=== PATIENT | male | born 1995 | race Caucasian/White ===

== ENCOUNTER 2017-10-20 14:25 | Emergency (ER) | payer OTHER ==
[~2017-10-20] VITALS: Ht 177.8 cm; Wt 68.0 kg
[2017-10-20 14:55] VITALS: BP 118/70
[2017-10-20] MEDS ORDERED: TDAP [DIPH/PERTUSSIS/TET] 0.5 ML VIAL IM ONE ×2 (15:02→15:30)
--- NOTE | 2017-10-20 15:11 | NUR ---
PT'S MIDDLE FINGER IS SOAKING IN BETADINE AND SALINE.
== END 2017-10-20 15:29 | disposition home or self-care (01) ==
LOC: ER 14:28
DX: S61.253A Open bite of left middle finger without damage to nail, initial encounter (principal); F10.10 Alcohol abuse, uncomplicated; Z23 Encounter for immunization; W53.21XA Bitten by squirrel, initial encounter; Y93.89 Activity, other specified; Y92.89 Other specified places as the place of occurrence of the external cause; Y99.8 Other external cause status
CPT/HCPCS: 90715; A4606; Z7610

== ENCOUNTER 2018-03-06 19:41 | Emergency (ER) | payer OTHER ==
[~2018-03-06] VITALS: Ht 180.3 cm; Wt 68.0 kg
[2018-03-06 19:49] VITALS: BP 114/73
[2018-03-06] MEDS ORDERED: IBUPROFEN 600 MG TABLET PO ONE ×2 (20:51→21:00)
== END 2018-03-06 20:56 | disposition home or self-care (01) ==
LOC: ER 19:44
DX: J06.9 Acute upper respiratory infection, unspecified (principal); J32.9 Chronic sinusitis, unspecified; F10.10 Alcohol abuse, uncomplicated; Z60.2 Problems related to living alone; Z87.891 Personal history of nicotine dependence
CPT/HCPCS: A4606; Z7610

== ENCOUNTER 2019-11-20 22:41 | Emergency (ER) | payer OTHER ==
[~2019-11-20] VITALS: Ht 180.3 cm; Wt 63.5 kg
[2019-11-20 22:54] VITALS: BP 131/73
== END 2019-11-21 02:33 | disposition home or self-care (01) ==
LOC: ER 22:44
DX: S62.317A Displaced fracture of base of fifth metacarpal bone, left hand, initial encounter for closed fracture (principal); Z98.890 Other specified postprocedural states; Z60.2 Problems related to living alone; W22.8XXA Striking against or struck by other objects, initial encounter; Y93.89 Activity, other specified; Y92.89 Other specified places as the place of occurrence of the external cause; Y99.8 Other external cause status
CPT/HCPCS: 73130-TC